=== PATIENT | male | born 1990 | race American Indian/Alaskan Native ===

== ENCOUNTER 2017-03-25 18:38 | Emergency (ER) | payer SELFPAY ==
[2017-03-25 18:46] VITALS: TEMP 98.3; BMI 23.6
[2017-03-25 20:22] VITALS: BP 128/70; PULSE 89; RESP 17; O2SAT 100
--- NOTE | 2017-03-25 20:38 | ED PDOC ---
Arrival/HPI - General Chief Complaint: Dental Pain Time Seen by Provider: 03/25/17 19:34 Historian: Patient - History of Present Illness Narrative History of Present Illness (Text): 03/25/17 20:38 26-year-old male presents today with left-sided dental pain 2 days and left- sided jaw pain. Patient states he's been taking Motrin with some improvement in the pain. He denies fevers or chills. Patient states he noticed that he had a dental fracture in the left upper molar which has been causing him pain. He denies headache or dizziness. Denies trismus or drooling. No other complaints Time/Duration: Other (2 days) Symptom Onset: Gradual Symptom Course: Worsening Quality: Aching, Stabbing Severity Level: 5 Past Medical History - Provider Review Nursing Documentation Reviewed: Yes - Travel History Have you recently traveled outside [place] w/in the past 3 mons?: No - Cardiac Hx Cardiac Disorders: No - Pulmonary Hx Respiratory Disorders: No - Neurological Hx Neurological Disorder: No - HEENT Hx HEENT Disorder: No - Renal Hx Renal Disorder: No - Endocrine/Metabolic Hx Endocrine Disorders: No - Hematological/Oncological Hx Blood Disorders: No - Integumentary Hx Dermatological Disorder: No - Musculoskeletal/Rheumatological Hx Musculoskeletal Disorders: No - Gastrointestinal Hx Gastrointestinal Disorders: No - Genitourinary/Gynecological Hx Genitourinary Disorders: No - Psychiatric Hx Psychophysiologic Disorder: No Hx Substance Use: No - Anesthesia Hx Anesthesia: Yes Hx Anesthesia Reactions: Yes Hx Malignant Hyperthermia: Yes Family/Social History - Physician Review Nursing Documentation Reviewed: Yes Family/Social History: Unknown Family HX Smoking Status: Never Smoked Hx Alcohol Use: No Hx Substance Use: No Allergies/Home Meds Allergies/Adverse Reactions: Allergies No Known Allergies Allergy (Verified 03/25/17 18:46) Review of Systems - Review of Systems Constitutional: absent: Fatigue, Fevers Respiratory: absent: SOB, Cough Cardiovascular: absent: Chest Pain, Palpitations Gastrointestinal: absent: Abdominal Pain, Nausea, Vomiting Genitourinary Male: absent: Dysuria, Frequency, Hematuria Musculoskeletal: Arthralgias (left sided jaw pain). absent: Back Pain, Neck Pain Skin: absent: Rash, Pruritis Neurological: Headache. absent: Dizziness Psychiatric: absent: Anxiety, Depression Physical Exam Vital Signs Reviewed: Yes Vital Signs Temp Pulse Resp BP Pulse Ox 03/25/17 20:22 89 17 128/70 100 03/25/17 18:46 98.3 F 90 18 133/57 L 98 03/25/17 18:45 98.3 F 90 17 132/57 L 98 Temperature: Afebrile Blood Pressure: Normal Pulse: Regular Respiratory Rate: Normal Appearance: Positive for: Well-Appearing, Non-Toxic, Comfortable Pain Distress: None Mental Status: Positive for: Alert and Oriented X 3 - Systems Exam Head: Present: Atraumatic Mouth: Present: Moist Mucous Membranes, Normal Lips, Normal Tounge. No: Drooling, Trismus, Normal Teeth (left lower molar dental tenderness and broken tooth; no erythema; no edema) Pharnyx: Present: Normal. No: ERYTHEMA, EXUDATE Nose (External): Present: Atraumatic Neck: Present: Normal Range of Motion, Trachea Midline. No: Lymphadenopathy Respiratory/Chest: Present: Clear to Auscultation, Good Air Exchange. No: Respiratory Distress, Accessory Muscle Use Cardiovascular: Present: Regular Rate and Rhythm, Normal S1, S2. No: Murmurs Neurological: Present: GCS=15, Speech Normal Skin: Present: Warm, Dry, Normal Color. No: Rashes Psychiatric: Present: Alert, Oriented x 3 Medical Decision Making ED Course and Treatment: 03/25/17 20:41 Patient is nontoxic well-appearing in no distress with stable vital signs No trismus or drooling, moist mucous membranes Amoxicillin Toradol Patient reassessment: Patient is feeling better after medications. I advised follow-up with the dentist within the next 2 days. I advised immediate return is symptoms worsen persist or if new concerning symptoms develop Patient verbalizes understanding of discharge instructions and need for immediate followup. Impression: Toothache Motrin every 6 hours as needed for pain Tramadol 1 tablet every 6 hours as needed for moderate to severe pain: May cause drowsiness Amoxicillin 1 tablet 3 times daily x 10 days Follow-up with the dentist within the next 2 days Follow up with the primary care physician within the next 2 days. Return immediately if symptoms worsen persist or if new concerning symptoms develop - Medication Orders Current Medication Orders: Discontinued Medications Amoxicillin (Amoxil 500 Mg Cap) 500 mg PO STAT STA PRN Reason: Protocol Stop: 03/25/17 19:35 Last Admin: 03/25/17 20:06 Dose: 500 mg Ketorolac Tromethamine (Toradol) 60 mg IM STAT STA Stop: 03/25/17 19:35 Last Admin: 03/25/17 20:06 Dose: 60 mg MAR Pain Assessment Document 03/25/17 20:06 JOL (Rec: 03/25/17 20:07 JO [id number]) Pain Reassessment Is this a pain reassessment? No Sleep Is patient sleeping during reassessment? No Presence of Pain Presence of Pain Yes Pain Scale Used Pain Scale Used Numeric Description Intensity of Pain at present 6 IM Administration Charges Document 03/25/17 20:06 JO (Rec: 03/25/17 20:07 JO [id number]) Injection Site MAR Injection Site Left Deltoid Charges for Administration # of IM Administrations 1 Disposition/Present on Arrival - Present on Arrival Any Indicators Present on Arrival: No History of DVT/PE: No History of Uncontrolled Diabetes: No Urinary Catheter: No History of Decub. Ulcer: No History Surgical Site Infection Following: None - Disposition Have Diagnosis and Disposition been Completed?: Yes Diagnosis: Toothache Disposition: HOME/ ROUTINE Disposition Time: 20:42 Patient Plan: Discharge Condition: GOOD Discharge Instructions (ExitCare): Toothache (ED) Additional Instructions: Motrin every 6 hours as needed for pain Tramadol 1 tablet every 6 hours as needed for moderate to severe pain: May cause drowsiness Amoxicillin 1 tablet 3 times daily x 10 days Follow-up with the dentist within the next 2 days Follow up with the primary care physician within the next 2 days. Return immediately if symptoms worsen persist or if new concerning symptoms develop Prescriptions: Amoxicillin 500 mg PO TID #30 tab Ibuprofen [Motrin] 600 mg PO Q6H PRN #20 tab PRN Reason: pain/fever reduction traMADol [Ultram] 50 mg PO Q6H PRN #6 tab PRN Reason: moderate to severe pain Referrals: Cristhian Fajardo DMD [Non-Staff] - Follow up with primary Juan F Fowler DMD [Staff Provider] - Follow up with primary Geovanny Jamil MD [Staff Provider] - Follow up with primary Forms: [employer] (Tajik), WORK NOTE
== END 2017-03-25 20:55 | disposition home or self-care (01) ==
LOC: ED 18:38
DX: K08.89 Other specified disorders of teeth and supporting structures (principal)
CPT/HCPCS: 96372; 99284; J1885

== ENCOUNTER 2018-06-21 16:01 | Emergency (ER) | payer SELFPAY ==
[2018-06-21 16:02] VITALS: BMI 23.6
[2018-06-21 16:22] VITALS: RESP 18; TEMP 98.3
[2018-06-21] MEDS ORDERED: Sodium Chloride 0.9% 1,000 ML IV STA (16:36)
[2018-06-21 17:14] LABS: BASO # 0.06 K/mm3 (0.0-2.0); BASO % 0.9 % (0.0-3.0); EOS # 0.3 (0.0-0.7); EOS % 4.5 % (1.5-5.0); HEMOGLOBIN 14.7 g/dL (14.0-18.0); LYMPH # 2.2 (1.2-3.4); LYMPH % 34.3 % (22.0-35.0); MEAN CELL VOLUME 92.6 fl (80.0-105.0); MEAN CORPUSCULAR HEMOGLOBIN 30.9 pg (25.0-35.0); MEAN CORPUSCULAR HGB CONC 33.4 g/dl (31.0-37.0); MEAN PLATELET VOLUME 9.3 fl (7.0-11.0); MONO # 0.7 (0.1-0.6); MONO % 10.9 % (1.0-6.0); RBC 4.75 10^6/uL (3.5-6.1); RED CELL DISTRIBUTION WIDTH 11.7 % (11.5-14.5); WHITE BLOOD COUNT 6.4 10^3/uL (4.5-11.0)
--- NOTE | 2018-06-21 17:15 | RAD ---
Date of service: 06/21/2018 HISTORY: Chest pain COMPARISON: No prior. FINDINGS: LUNGS: The lungs are well inflated and clear. PLEURA: No pleural effusions or pneumothorax. CARDIOVASCULAR: The heart is normal in size. No aortic atherosclerotic calcifications present. OSSEOUS STRUCTURES: Within normal limits for the patient's age. VISUALIZED UPPER ABDOMEN: Normal. OTHER FINDINGS: None. IMPRESSION: No active pulmonary disease.
[2018-06-21 17:25] LABS: ALB/GLOB RATIO 1.4 (1.1-1.8); ALBUMIN 4.6 g/dL (3.0-4.8); ALT/SGPT 106 U/L (7-56); AST/SGOT 77 U/L (17-59); BLOOD UREA NITROGEN 9 mg/dL (7-21); CALCIUM 10.2 mg/dL (8.4-10.5); GFR NON-AFRICAN AMERICAN > 60
[2018-06-21 17:34] LABS: INR 0.99; PARTIAL THROMBOPLASTIN TIME 34.5 Seconds (26.9-38.3)
[2018-06-21 17:35] LABS: TROPONIN I < 0.01 ng/mL
[2018-06-21 18:25] VITALS: BP 134/85; PULSE 62; O2SAT 100
--- NOTE | 2018-06-21 19:03 | ED PDOC ---
Arrival/HPI - General Chief Complaint: Chest Pain Time Seen by Provider: 06/21/18 16:23 - History of Present Illness Narrative History of Present Illness (Text): 06/21/18 19:03 27 y/o male with no significant PMH presents to the ED c/o chest pain x 1 day. Pain began yesterday, described as intermittent, left sided, sharp/burning since yesterday. Worse lying flat and after eating. Associated dry cough. Has not taken any medication for symptoms. 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 No tobacco use. Denies fever, chills, SOB, palpitations, abdominal pain, nausea, vomiting, diarrhea, back pain, neck pain, headache, dizziness, vision changes, or any other associated complaints. Past Medical History - Cardiac Hx Cardiac Disorders: No - Pulmonary Hx Respiratory Disorders: No - Neurological Hx Neurological Disorder: No - HEENT Hx HEENT Disorder: No - Renal Hx Renal Disorder: No - Endocrine/Metabolic Hx Endocrine Disorders: No - Hematological/Oncological Hx Blood Disorders: No - Integumentary Hx Dermatological Disorder: No - Musculoskeletal/Rheumatological Hx Musculoskeletal Disorders: No - Gastrointestinal Hx Gastrointestinal Disorders: No - Genitourinary/Gynecological Hx Genitourinary Disorders: No - Psychiatric Hx Psychophysiologic Disorder: No Hx Substance Use: No - Anesthesia Hx Anesthesia: Yes Hx Anesthesia Reactions: Yes Hx Malignant Hyperthermia: Yes Family/Social History - Physician Review Nursing Documentation Reviewed: Yes Family/Social History: No Known Family HX Smoking Status: Current Some Days Smoker Hx Alcohol Use: Yes Frequency of alcohol use: Few days per week Hx Substance Use: No Allergies/Home Meds Allergies/Adverse Reactions: Allergies No Known Allergies Allergy (Verified 06/21/18 16:22) Physical Exam Vital Signs Temp Pulse Pulse Resp BP BP Pulse Ox 06/21/18 18:25 62 18 134/85 100 06/21/18 17:03 65 132/83 06/21/18 16:02 98.3 F 68 18 132/83 98 Medical Decision Making ED Course and Treatment: Initial Plan: * CBC, CMP * Mg, Phos * Cardio Iso * Coags * EKG * CXR * IVF * Pepcid Labwork shows mildly elevated LFTs, otherwise unremarkable; troponin negative EKG shows no acute changes CXR no active disease Low suspicion for cardiac chest pain secondary to low heart score and exacerbating factors of pain. However, patient with persistent discomfort, will seek overnight observation. Offered patient admission for chest pain, patient wishes to go home. Will sign patient out AMA. Requesting medication for heartburn, will provide prescriptions. Discussed LFTs with patient, admits to increased drinking recently. Educated on alcohol cessation, patient verbalizes understanding. 183 The patient is choosing to leave against medical advice. I have personally explained to the patient that choosing to do so may result in permanent bodily harm, disability, or . I have discussed at great length that without further evaluation and monitoring there may be unforeseen circumstances and/or deterioration causing permanent bodily harm or as a result of their choice. The patient is alert, oriented, and shows the mental capacity to make clear decisions regarding the patients health care at this time. The patient continues to wish to leave against medical advice. In light of the patients decision to leave against medical advice, follow-up has been arranged and the patient is aware of the importance to following up as instructed. The patient has been advised that they should return to the emergency room immediately if they change their mind at any time, or if their condition begins to change or worsen in any way. - Lab Interpretations Lab Results: PT 11.0 SECONDS (9.4-12.5) 06/21/18 17:06 INR 0.99 06/21/18 17:06 APTT 34.5 Seconds (26.9-38.3) 06/21/18 17:06 Troponin I < 0.01 ng/mL 06/21/18 17:06 Total Bilirubin 0.7 mg/dL (0.2-1.3) 06/21/18 17:06 AST 77 U/L (17-59) H 06/21/18 17:06 ALT 106 U/L (7-56) H 06/21/18 17:06 Alkaline Phosphatase 75 U/L (38-126) 06/21/18 17:06 Total Protein 7.8 g/dL (5.8-8.3) 06/21/18 17:06 Albumin 4.6 g/dL (3.0-4.8) 06/21/18 17:06 Globulin 3.2 gm/dL 06/21/18 17:06 Albumin/Globulin Ratio 1.4 (1.1-1.8) 06/21/18 17:06 06/21/18 17:06 06/21/18 17:06 Lab Results 06/21/18 17:06: Sodium 139, Potassium 3.9, Chloride 101, Carbon Dioxide 30, Anion Gap 12, BUN 9, Creatinine 0.8, Est GFR ( Amer) > 60, Est GFR (Non- Af Amer) > 60, Random Glucose 89, Calcium 10.2, Magnesium 2.0, Total Bilirubin 0.7, AST 77 H, ALT 106 H, Alkaline Phosphatase 75, Lactate Dehydrogenase 514, Total Creatine Kinase 75, Troponin I < 0.01, Total Protein 7.8, Albumin 4.6, Globulin 3.2, Albumin/Globulin Ratio 1.4 06/21/18 17:06: PT 11.0, INR 0.99, APTT 34.5 06/21/18 17:06: WBC 6.4, RBC 4.75, Hgb 14.7, Hct 44.0, MCV 92.6, MCH 30.9, MCHC 33.4, RDW 11.7, Plt Count 304, MPV 9.3, Neut % (Auto) 49.4 L, Lymph % (Auto) 34.3, Cooper % (Auto) 10.9 H, Eos % (Auto) 4.5, Baso % (Auto) 0.9, Lymph # (Auto) 2.2, Cooper # (Auto) 0.7 H, Eos # (Auto) 0.3, Baso # (Auto) 0.06, Absolute Neuts (auto) 3.16 I have reviewed the lab results: Yes - RAD Interpretation Narrative RAD Interpretations (Text): CXR: No active disease Radiology Orders: 06/21/18 16:35 CHEST PORTABLE [RAD] Stat - EKG Interpretation EKG Interpretation (Text): Rate 69; NSR; Normal Intervals; No STEMI or other signs of acute ischemia Interpreted by ED Physician: Yes Type: 12 lead EKG - Medication Orders Current Medication Orders: Discontinued Medications Famotidine (Pepcid) 20 mg IVP STAT STA Stop: 06/21/18 16:37 Last Admin: 06/21/18 17:02 Dose: 20 mg IVP Administration Document 06/21/18 17:02 MR (Rec: 06/21/18 17:02 MR [id number]) Charges for Administration # of IVP Administrations 1 Sodium Chloride (Sodium Chloride 0.9%) 1,000 mls @ 999 mls/hr IV .Q1H1M STA Stop: 06/21/18 17:36 Last Admin: 06/21/18 17:02 Dose: 999 mls/hr eMAR Start Stop Document 06/21/18 17:02 (Rec: 06/21/18 17:03 MR [id number]) Intravenous Solution Start Date 06/21/18 Start Time 17:02 End Date 06/21/18 End time 18:02 Total Infusion Time 60 Disposition/Present on Arrival - Present on Arrival Any Indicators Present on Arrival: No History of DVT/PE: No History of Uncontrolled Diabetes: No Urinary Catheter: No History of Decub. Ulcer: No History Surgical Site Infection Following: None - Disposition Have Diagnosis and Disposition been Completed?: Yes Diagnosis: Left against medical advice, Chest pain Disposition: AGAINST MEDICAL ADVICE Disposition Time: 18:30 Condition: GUARDED Discharge Instructions (ExitCare): Chest Pain That Is Not Caused by the Heart (DC), Leaving Against Medical Advice, Chest Pain (ED) Additional Instructions: Pepcid every 12 hours as needed Omeprazole daily as needed Followup with cardiology tomorrow Followup with primary tomorrow Return to ER with any new/worsening symptoms or if you wish to be re-evaluated Prescriptions: Famotidine [Pepcid] 20 mg PO Q12 #30 tab Omeprazole 20 mg PO DAILY #30 capsule. Referrals: [facility] [Outside] - [place] up with [place] [facility] [place] [facility] [place] - Follow up with primary Rosemarie Griffiths MD [Medical Doctor] - Follow up with primary Haseeb Nolan MD [Staff Provider] - Follow up with primary Forms: [employer] (Dutch)
--- NOTE | 2018-06-22 09:20 | CARD ---
APPROVED REPORT Date of service: 06/21/2018 EKG Measurement Heart [id number] <Conclusion> Normal sinus rhythm Normal ECG
== END 2018-06-21 18:46 | disposition left against medical advice (07) ==
LOC: ED 16:01
DX: R07.9 Chest pain, unspecified (principal)
CPT/HCPCS: 71045; 80053; 82550; 83615; 83735; 84484; 85025; 85610; 85730; 93005; 96361; 96374; 99284; J7030